=== PATIENT | female | born 1970 | race Caucasian/White ===

== ENCOUNTER 2019-11-01 18:26 | Outpatient (CLI) | payer OTHER, SELFPAY ==
--- NOTE | ~2019-11-01 | XR_ITS ---
EXAMINATION: XR foot LT min 3V, XR foot RT min 3V DATE: 11/01/2019 18:51 INDICATION: Bilateral heel pain. Plantar fascial fibromatosis. TECHNIQUE: 1. Dorsoplantar, two oblique and lateral views of the left foot were obtained. 2. Dorsoplantar, two oblique and lateral views of the right foot were obtained. COMPARISON: None. FINDINGS: Alignment is normal at both feet. No fracture. Relatively symmetric mild polyarticular osteoarthritis at the bilateral first metatarsophalangeal and several interphalangeal joints. Small bilateral plant ar calcaneal spurs. No cortical erosions. Soft tissues are unremarkable. IMPRESSION: 1. Bilateral small plantar calcaneal spurs. 2. 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 Reviewed, dictated and finalized at location A. IMPRESSION: 1. Bilateral small plantar calcaneal spurs. 2. 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
== END 2019-11-01 18:27 | disposition home or self-care (01) ==
PROVIDERS: PCP Family Medicine; Visit Provider Family Medicine
DX: M72.2 Plantar fascial fibromatosis (principal); M77.31 Calcaneal spur, right foot; M77.32 Calcaneal spur, left foot; M19.071 Primary osteoarthritis, right ankle and foot; M19.072 Primary osteoarthritis, left ankle and foot
CPT/HCPCS: 73630

== ENCOUNTER 2020-04-10 07:27 | Outpatient (CLI) | payer OTHER, SELFPAY ==
--- NOTE | ~2020-04-10 | MM_ITS ---
EXAMINATION: MM screening ion BI w elena HISTORY: Screening mammogram TECHNIQUE: Craniocaudal and mediolateral oblique 3-D tomosynthesis images were obtained and synthetic 2-D images were generated. CAD analysis was submitted and interpreted. COMPARISON: 04/08/2019, 04/06/2018, 03/19/2017 bilateral digital screening mammogram examinations BREAST PARENCHYMAL COMPOSITION: There are scattered areas of fibroglandular density. FINDINGS: There is a circumscribed 6.5 mm low-density opacity in the upper outer quadrant of the left breast, stable since 03/19/2017, likely a benign intramammary lymph node. Benign smaller axillary leora l lymph nodes are noted on the right as well. There is no evidence of suspicious mass, calcification, or architectural distortion to suggest malignancy in either breast. There has been no suspicious int erval change. IMPRESSION: 1. No mammographic evidence of malignancy. 2. Recommend routine screening mammography in one year. BI-RADS Category 2: Benign finding(s). Reviewed, dictated and finalized at location A. CE EQUIPMENT TECHNICIAN
== END 2020-04-10 07:28 | disposition home or self-care (01) ==
LOC: ANHIMG 07:30
PROVIDERS: PCP Family Medicine; Visit Provider Family Medicine
DX: Z12.31 Encounter for screening mammogram for malignant neoplasm of breast (principal)
CPT/HCPCS: 77063; 77067

== ENCOUNTER 2021-04-16 07:19 | Outpatient (CLI) | payer OTHER, SELFPAY ==
--- NOTE | ~2021-04-16 | MM_ITS ---
EXAMINATION: MM screening ion BI w elena HISTORY: Screening mammogram TECHNIQUE: Craniocaudal and mediolateral oblique 3-D tomosynthesis images were obtained and synthetic 2-D images were generated. CAD analysis was submitted and interpreted. COMPARISON: 04/10/2020, 04/08/2019, 04/06/2018 bilateral screening mammogram examinations BREAST PARENCHYMAL COMPOSITION: There are scattered areas of fibroglandular density. FINDINGS: Approximately 8 x 10 mm mass is noted anteriorly in the lower inner quadrant of the right b reast. Diagnostic right mammogram and right breast ultrasound examination are recommended. Stable circumscribed r up to 8 mm opacity in the upper outer left breast posteriorly, likely a benign intramammary lymph node Posterior upper outer table circumscribed mass, likely benign. Other than the right breast mass, there is no evidence of suspicious mass, calcification, or architec tural distortion to suggest malignancy in either breast. There has been no other suspicious interval change. IMPRESSION: 1. 8 x 10 mm mass in anterior lower inner right breast 2. Diagnostic right mammogram and right breast ultrasound examination are recommended BI-RADS Category 0: Incomplete: Needs additional imaging evaluation. Reviewed, dictated and finalized at location A. CH DEVELOPER IMPRESSION: 1. 8 x 10 mm mass in anterior lower inner right breast 2. Diagnostic right mammogram and right breast ultrasound examination are recom mended BI-RADS Category 0: Incomplete: Needs additional imaging evaluation.
== END 2021-04-16 07:20 | disposition home or self-care (01) ==
LOC: ANHIMG 07:21
PROVIDERS: PCP Family Medicine; Visit Provider Family Medicine
DX: Z12.31 Encounter for screening mammogram for malignant neoplasm of breast (principal); R92.8 Other abnormal and inconclusive findings on diagnostic imaging of breast
CPT/HCPCS: 77063; 77067

== ENCOUNTER 2021-04-27 12:48 | Outpatient (CLI) | payer OTHER, SELFPAY ==
--- NOTE | ~2021-04-27 | MMUS_ITS ---
EXAMINATION: MM diagnostic ion BI w elena, US breast BI limited HISTORY: Follow-up breast asymmetries and right breast mass TECHNIQUE: Additional 3-D tomosynthesis images of the breasts were performed and synthetic 2-D images were generated. CAD analysis was submitted and interpreted. High resolution bilateral limited breast ultrasound was performed. COMPARISON: Comparison to multiple prior studies sequentially, with oldest reviewed study dated 05/2016. BREAST PARENCHYMAL COMPOSITION: Breast composed of scattered areas of fibroglandular density FINDINGS: MAMMOGRAPHIC FINDINGS: There is an 11 mm mass with circumscribed margins in the lower inner quadrant of the right breast ant eriorly. There are no suspicious masses, calcifications or architectural distortion in the left breas t to suggest malignancy. ULTRASOUND: Limited right breast ultrasound: There the nipple there is a complicated cyst measuring 11 mm corresp onding to the mass seen on mammography. There are multiple additional small simple and complicated cy sts of the right breast. Limited left breast ultrasound: In the subareolar location there is a 3 mm cyst.: IMPRESSION: 1. No evidence for malignancy in either breast. Benign findings. 2. Routine yearly screening mammogram and regular clinical breast examination are recommended. BI-RADS Category 2: Benign finding(s). Reviewed, dictated and finalized at location A. ICAL ENGINEERING TECHNICIAN IMPRESSION: 1. No evidence for malignancy in either breast. Benign findings. 2. Routine yearly screening mammogram and regular clinical breast examination a re recommended. BI-RADS Category 2: Benign finding(s).
== END 2021-04-27 12:49 | disposition home or self-care (01) ==
LOC: ANHIMG 12:50
PROVIDERS: PCP Family Medicine; Visit Provider Family Medicine
DX: R92.8 Other abnormal and inconclusive findings on diagnostic imaging of breast (principal)
CPT/HCPCS: 76642; 77062; 77066; G0279

== ENCOUNTER 2022-04-20 07:13 | Outpatient (CLI) | payer OTHER, SELFPAY ==
--- NOTE | ~2022-04-20 | MM_ITS ---
EXAMINATION: MM screening [facility] BI w elena HISTORY: Screening mammogram TECHNIQUE: Craniocaudal and mediolateral oblique 3-D tomosynthesis images were obtained and synthetic 2-D images were generated. CAD analysis was submitted and interpreted. COMPARISON: 04/27/2021, 04/16/2021, 04/10/2020, 04/08/2019 BREAST PARENCHYMAL COMPOSITION: There are scattered areas of fibroglandular density. FINDINGS: A mass in the subareolar aspect of the right breast demonstrates interval decrease in size, consistent with a benign finding. No suspicious mass, calcification, or architectural distortion are identified in either breast to suggest malignancy. There has been no suspicious interval change. IMPRESSION: 1. No mammographic evidence of malignancy. 2. Recommend routine screening mammography in one year. BI-RADS Category 2: Benign finding(s). Reviewed, dictated and finalized at location A. PRESIDENT DIGITAL STRATEGIST
== END 2022-04-20 07:14 | disposition home or self-care (01) ==
PROVIDERS: PCP Family Medicine; Visit Provider Family Medicine
DX: Z12.31 Encounter for screening mammogram for malignant neoplasm of breast (principal)
CPT/HCPCS: 77063; 77067

== ENCOUNTER 2022-07-25 22:23 | Outpatient (CLI) | payer OTHER, SELFPAY | END 2022-07-25 22:24 | disposition home or self-care (01) | LOC: ANHLAB 22:24 | PROVIDERS: PCP Family Medicine; Visit Provider Nurse Practitioner | DX: J02.9 Acute pharyngitis, unspecified (principal) | CPT/HCPCS: 87070 ==

== ENCOUNTER 2023-05-01 13:57 | Outpatient (CLI) | payer OTHER, SELFPAY ==
--- NOTE | ~2023-05-01 | MM_ITS ---
EXAMINATION: MM screening [facility] BI w elena HISTORY: Screening TECHNIQUE: Craniocaudal and mediolateral oblique 3-D tomosynthesis images were obtained and synthetic 2-D images were generated. CAD analysis was submitted and interpreted. COMPARISON: Comparison to multiple prior studies sequentially, with oldest reviewed study dated 03/19. BREAST PARENCHYMAL COMPOSITION: Breast composed of scattered areas of fibroglandular density FINDINGS: There are enlarging bilateral breast masses. The mass in the right breast is located in the lower inner quadrant anteriorly. Mass in the left breast is located in the upper outer quadrant post eriorly. There are no suspicious calcifications. There are stable benign-appearing lymph nodes in the upper outer quadrant of the right breast. IMPRESSION: 1. Enlarging bilateral breast masses. 2. Additional mammographic views and possible breast ultrasound are recommended. BI-RADS Category 0: Incomplete: Needs additional imaging evaluation. Reviewed, dictated and finalized at location A. UCT INSPECTION COORDINATOR IMPRESSION: 1. Enlarging bilateral breast masses. 2. Additional mammographic views and possible breast ultrasound are recommended . BI-RADS Category 0: Incomplete: Needs additional imaging evaluation.
== END 2023-05-01 13:58 | disposition home or self-care (01) ==
PROVIDERS: PCP Family Medicine; Visit Provider Family Medicine
DX: Z12.31 Encounter for screening mammogram for malignant neoplasm of breast (principal); R92.8 Other abnormal and inconclusive findings on diagnostic imaging of breast
CPT/HCPCS: 77063; 77067

== ENCOUNTER 2023-05-13 12:46 | Outpatient (CLI) | payer OTHER, SELFPAY ==
--- NOTE | ~2023-05-13 | MM_ITS ---
EXAMINATION: MM diagnostic ion BI w elena HISTORY: Enlarging bilateral breast masses TECHNIQUE: Additional 3-D tomosynthesis images of both breasts were performed and synthetic 2-D image s were generated. CAD analysis was submitted and interpreted. COMPARISON: 05/01/2023, 04/20/2022ilateral screening mammogram examinations FINDINGS: Right breast: There is an oval circumscribed low-density mass with halo sign measuring approximately 6.7 x 11 mm in the inferolateral medial subareolar area, not significantly changed since 04/20/2022. The circumscrib ed margins and particularly halo sign are consistent with benign process, likely a cyst. Left breast: Stable circumscribed oval low-density benign-appearing opacity with halo sign in the posterior upper outer left breast, not significantly changed in size or shape since 04/20/2022. IMPRESSION: 1. Benign findings 2. Routine annual mammographic screening is recommended BI-RADS Category 2: Benign finding(s). Reviewed, dictated and finalized at location A. RANGE ATTENDANT
== END 2023-05-13 12:47 | disposition home or self-care (01) ==
PROVIDERS: PCP Family Medicine; Visit Provider Nurse Practitioner
DX: R92.8 Other abnormal and inconclusive findings on diagnostic imaging of breast (principal)
CPT/HCPCS: 77062; 77066; G0279

== ENCOUNTER 2024-05-27 14:40 | Outpatient (CLI) | payer OTHER, SELFPAY ==
--- NOTE | ~2024-05-27 | MM_ITS ---
EXAMINATION: MM screening ion BI w elena HISTORY: Screening TECHNIQUE: Craniocaudal and mediolateral oblique 3-D tomosynthesis images were obtained and synthetic 2-D images were generated. CAD analysis was submitted and interpreted. COMPARISON: Comparison to multiple prior studies sequentially, with oldest reviewed study dated 03/20. BREAST PARENCHYMAL COMPOSITION: Not dense: There are scattered areas of fibroglandular density. FINDINGS: There are developing masses in the periareolar location of the right breast. The left breas t is stable without evidence for malignancy. IMPRESSION: 1. Developing right breast masses. 2. Additional mammographic views and possible breast ultrasound are recommended. BI-RADS Category 0: Incomplete: Needs additional imaging evaluation. Reviewed, dictated and finalized at location B. LER AND TEST PREPARER IMPRESSION: 1. Developing right breast masses. 2. Additional mammographic views and possible breast ultrasound are recommended . BI-RADS Category 0: Incomplete: Needs additional imaging evaluation.
== END 2024-05-27 14:41 | disposition home or self-care (01) ==
PROVIDERS: PCP Family Medicine; Visit Provider Nurse Practitioner
DX: Z12.31 Encounter for screening mammogram for malignant neoplasm of breast (principal); R92.8 Other abnormal and inconclusive findings on diagnostic imaging of breast
CPT/HCPCS: 77063; 77067

== ENCOUNTER 2024-06-08 10:52 | Outpatient (CLI) | payer OTHER, SELFPAY ==
--- NOTE | ~2024-06-08 | MMUS_ITS ---
EXAMINATION: MM diagnostic ion RT w elena, US breast RT limited HISTORY: Developing right breast masses TECHNIQUE: Additional 3-D tomosynthesis images of the right breast were performed and synthetic 2-D i mages were generated. CAD analysis was submitted and interpreted. High resolution Limited right breas t ultrasound was performed. COMPARISON: Comparison to multiple prior studies sequentially, with oldest reviewed study dated 03/20. BREAST PARENCHYMAL COMPOSITION: Not dense: There are scattered areas of fibroglandular density. FINDINGS: MAMMOGRAPHIC FINDINGS: In the lower inner quadrant of the right breast anteriorly there is a circumscribed mass measuring up to 8 mm. There are no suspicious calcifications or architectural distortion. ULTRASOUND: Limited right breast ultrasound: At 3:00 near the nipple there is an oval hypoechoic mass measuring 1 .3 x 0.8 x 0.7 cm with low level internal echoes, posterior acoustic enhancement and no internal vasc ularity. There is parallel orientation. The margins are slightly irregular laterally with possible ar eas of wall thickening. At 9:00 adjacent to the nipple there are small cysts, largest measuring 5 mm. IMPRESSION: 1. Hypoechoic right breast mass at 3:00 near the nipple measuring up to 1.3 cm. This corresponds to t he area of mammographic concern. 2. Recommend correlation with ultrasound-guided fine-needle aspiration. If no fluid is obtained, perla mmend further evaluation with inversion to biopsy. BI-RADS category 4, suspicious findings. Reviewed, dictated and finalized at location A. HANGER IMPRESSION: 1. Hypoechoic right breast mass at 3:00 near the nipple measuring up to 1.3 cm. This corresponds to the area of mammographic concern. 2. Recommend correlation with ultrasound-guided fine-needle aspiration. If no f luid is obtained, recommend further evaluation with inversion to biopsy. BI-RADS category 4, suspicious findings.
== END 2024-06-08 10:53 | disposition home or self-care (01) ==
LOC: ANHIMG 10:54
PROVIDERS: PCP Family Medicine; Visit Provider Nurse Practitioner
DX: R92.8 Other abnormal and inconclusive findings on diagnostic imaging of breast (principal)
CPT/HCPCS: 76642; 77061; 77065; G0279

== ENCOUNTER 2024-06-17 08:32 | Outpatient (CLI) | payer OTHER, SELFPAY ==
--- NOTE | ~2024-06-17 | US_ITS ---
CORRECTED REPORT corrected examination description [facility] [place] 06/18/24 This report was recreated on 06/18/24. Original report was T EDUCATOR EXAMINATION: US breast cyst asp RT w g DATE: 06/17/2024 12:10 ADULT EDUCATOR INDICATION: Abnormal mammogram and ultrasound in a postmenopausal patient TECHNIQUE: Survey imaging of the right breast was performed. The cyst at the 3:00 position were targeted for aspiration. The procedure and its risk and benefits were discussed with the patient. Risks included but were not limited to pain, bleeding and infection. The patient verbalized understanding and provided written consent. A time-out was performed to document the patient's name, date of , and site of procedure. The medial quadrant of the patient's right breast was prepped and draped in usual sterile fashion. 1% lidocaine was used for local anesthesia. Utilizing ultrasound guidance, a 18-gauge needle was advanced into the lesion in the 3:00 position. Aspiration was performed, yielding approximately 1 cc of thin brown fluid which will be sent for cytology. The cyst collapsed in its entirety. The patient tolerated procedure without immediate complication. Sterile bandages were applied over the aspiration site. FINDINGS: IMPRESSION: Technically successful ultrasound-guided breast cyst aspiration, as detailed above. Reviewed, dictated and finalized at location A. T EDUCATOR MTDD IMPRESSION: Technically successful ultrasound-guided breast cyst aspiration, as detailed ab [facility].
== END 2024-06-17 08:33 | disposition home or self-care (01) ==
LOC: ANHIMG 08:32
PROVIDERS: PCP Family Medicine; Visit Provider Nurse Practitioner
DX: R92.8 Other abnormal and inconclusive findings on diagnostic imaging of breast (principal)
CPT/HCPCS: 19000; 76942; 88108; 88305

== ENCOUNTER 2024-12-28 10:34 | Outpatient (CLI) | payer OTHER, SELFPAY ==
--- NOTE | ~2024-12-28 | MMUS_ITS ---
EXAMINATION: MM diagnostic ion RT w elena, US breast RT limited HISTORY: Recent benign biopsy of right breast mass. Short-term follow-up. TECHNIQUE: Additional 3-D tomosynthesis images of the right breast were performed and synthetic 2-D i mages were generated. CAD analysis was submitted and interpreted. High resolution Limited right breas t ultrasound was performed. COMPARISON: Comparison to multiple prior studies sequentially, with oldest reviewed study dated 04/18. BREAST PARENCHYMAL COMPOSITION: Not dense: There are scattered areas of fibroglandular density. FINDINGS: MAMMOGRAPHIC FINDINGS: There is a persistent mass in the lower inner quadrant of the right breast, anterior third which has decreased in size compared with prior examination. No new masses, calcifications or architectural dis tortion in the right breast to suggest malignancy. ULTRASOUND: Limited right breast ultrasound: There is an oval partially cystic mass with solid component measurin g 6 x 5 x 5 mm. There is internal vascularity within the solid component. No significant posterior fe atures. IMPRESSION: 1. Diminished size of 6 mm right breast mass lower inner quadrant, anterior third. This was previousl y biopsy-proven benign on aspiration dated 06/17/2024. No evidence for malignancy in the right breast. 2. Routine yearly screening mammogram and regular clinical breast examination are recommended. BI-RADS Category 2: Benign finding(s). Reviewed, dictated and finalized at location A. IMPRESSION: 1. Diminished size of 6 mm right breast mass lower inner quadrant, anterior thi rd. This was previously biopsy-proven benign on aspiration dated 06/17/2024. No evidence for malignancy in the right breast. 2. Routine yearly screening mammogram and regular clinical breast examination a re recommended. BI-RADS Category 2: Benign finding(s).
== END 2024-12-28 10:35 | disposition home or self-care (01) ==
PROVIDERS: PCP Family Medicine; Visit Provider Surgery
DX: N63.15 Unspecified lump in the right breast, overlapping quadrants (principal); R92.8 Other abnormal and inconclusive findings on diagnostic imaging of breast; R89.7 Abnormal histological findings in specimens from other organs, systems and tissues
CPT/HCPCS: 76642; 77061; 77065; G0279